=== PATIENT | female | born 1945 | race Caucasian/White ===

== ENCOUNTER 2019-02-18 11:21 | Outpatient (CLI) | payer MEDICARE, OTHER | END 2019-02-18 23:59 | disposition home or self-care (01) | LOC: CFH 11:21 | PROVIDERS: ATTEND Family Medicine | DX: E78.2 Mixed hyperlipidemia (principal); R10.32 Left lower quadrant pain; Z90.49 Acquired absence of other specified parts of digestive tract | CPT/HCPCS: 74177; 75571; Q9967 ==